=== PATIENT | female | born 1985 | race Caucasian/White ===

== ENCOUNTER 2020-09-29 13:24 | Emergency (ER) | payer OTHER ==
[~2020-09-29] VITALS: Ht 162.6 cm; Wt 102.1 kg
[2020-09-29] MEDS ORDERED: KETOROLAC 30 MG/ML 1ML VIAL IV ONE (13:55)
[2020-09-29] MEDS ORDERED: ONDANSETRON 4MG/2ML VIAL IV ONE (13:55)
[2020-09-29 14:23] LABS: BASO # 0.1 10^3/uL (0.0-0.2); BASO % 0.7 % (0.0-1.0); EOS # 0.1 10^3/uL (0.0-0.5); EOS % 1.1 % (0.0-3.0); HEMATOCRIT 43.2 % (36.0-47.0); HEMOGLOBIN 14.1 g/dl (12.0-15.5); LYMPH # 1.4 10^3/uL (1.5-5.0); LYMPH % 16.5 % (24.0-44.0); MEAN CORPUSCULAR HEMOGLOBIN 27.6 pg (27.0-33.0); MEAN CORPUSCULAR HGB CONC 32.6 g/dl (32.0-36.5); MEAN CORPUSCULAR VOLUME 84.7 fl (80.0-96.0); MONO # 0.5 10^3/uL (0.0-0.8); MONO % 5.8 % (2.0-8.0); NEUTROPHILS # 6.3 10^3/uL (1.5-8.5); NEUTROPHILS % 75.5 % (36.0-66.0); PLATELET COUNT, AUTOMATED 347 10^3/uL (150-450); WHITE BLOOD COUNT 8.3 10^3/uL (4.0-10.0)
--- NOTE | 2020-09-29 14:36 | REP ---
INDICATION: inc headache hx shunt. COMPARISON: None. TECHNIQUE: Contiguous axial [place] images were obtained of the cervical spine. 2D sagittal and coronal reconstructions were performed. FINDINGS: There is maintenance of the normal cervical lordosis. The atlantodental joint is normal. The intervertebral disc spaces are preserved. There is no degenerative disc disease or facet arthropathy. There are no compression fractures or spondylolisthesis. There is no evidence for spinal canal stenosis. The skull base is normal. The lung apices are normal. The perivertebral soft tissues are normal. The cervical portion of the ventriculoperitoneal shunt is noted. IMPRESSION: Normal CT cervical spine. Cervical portion of a ventriculoperitoneal shunt. <Electronically signed by Dorian Pop > 09/29/20 [id number]
[2020-09-29 14:40] LABS: ERYTHROCYTE SEDIMENTATION RATE 14 mm/hr (0-20)
--- NOTE | 2020-09-29 14:42 | REP ---
INDICATION: increased headache hx shunt. COMPARISON: None. TECHNIQUE: Continuous axial projections were obtained through the brain pre 2D coronal reconstructions were performed. FINDINGS: The tip of a right frontal ventricular shunt is noted in the anterior horn of the right lateral ventricle. The ventricles do not appear abnormally dilated or abnormally small. There is no evidence of acute intracranial hemorrhage or infarction. There are no abnormal intracranial masses or mass effects. The skull base is normal. The intraorbital contents are normal. The extracranial portion of the ventriculoperitoneal shunt is seen in the right-sided scalp. Extracranial soft tissues are otherwise unremarkable. IMPRESSION: 1. No evidence of acute intracranial pathology. 2. Ventriculoperitoneal shunt. 3. No prior exams are available for comparison. <Electronically signed by Dorian Pop > 09/29/20 [id number]
[2020-09-29 14:52] LABS: BLOOD UREA NITROGEN 9 MG/DL (7-18); C REACTIVE PROTEIN QUANTITATIV 2.22 MG/DL (0.00-0.30); CALCIUM LEVEL 9.5 MG/DL (8.5-10.1); CARBON DIOXIDE LEVEL 29 MEQ/L (21-32); CHLORIDE LEVEL 105 MEQ/L (98-107); CREATININE FOR GFR 0.78 MG/DL (0.55-1.30); GLOMERULAR FILTRATION RATE > 60.0 (>60); GLUCOSE, FASTING 110 MG/DL (70-100); MAGNESIUM LEVEL 2.2 MG/DL (1.8-2.4); POTASSIUM SERUM 3.9 MEQ/L (3.5-5.1); SODIUM LEVEL 138 MEQ/L (136-145)
[2020-09-29 15:47] VITALS: BP 135/73
== END 2020-09-29 15:49 | disposition home or self-care (01) ==
LOC: M ED 13:24
DX: R51.9 Headache, unspecified (principal); I67.1 Cerebral aneurysm, nonruptured; Z98.2 Presence of cerebrospinal fluid drainage device; R56.9 Unspecified convulsions; F60.3 Borderline personality disorder; Z88.0 Allergy status to penicillin; Z88.6 Allergy status to analgesic agent; Z91.040 Latex allergy status
CPT/HCPCS: 70450; 72125; 80048; 83735; 85025; 85652; 86140; 96374; 96375; 99284; J1885; J2405

== ENCOUNTER 2021-01-30 18:29 | Emergency (ER) | payer OTHER ==
[~2021-01-30] VITALS: Ht 162.6 cm; Wt 103.7 kg
[2021-01-30 18:29] VITALS: BP 135/91
[2021-01-30 19:33] LABS: RSV AMPLIFICATION NEGATIVE (NEGATIVE)
== END 2021-01-30 23:00 | disposition left against medical advice (07) ==
LOC: M ED 18:29
DX: Z53.21 Procedure and treatment not carried out due to patient leaving prior to being seen by health care provider (principal)